=== PATIENT | male | born 1995 | race Caucasian/White ===

== ENCOUNTER 2017-05-22 13:52 | Day surgery (SDC) | payer OTHER ==
[~2017-05-22 13:52] MED LIST: Buffered Lidocaine 0.9% SYRIN* 5 ML/SYR SYRINGE INTRADERM ONE; Sodium Citrate/Citric Acid* 15 ML UDC PO ONE
[2017-05-22] MEDS ORDERED: ceFAZolin 2 GM PREMIX (*) 2 GM/50 ML BAG IVPB ONE (14:16)
[2017-05-22] MEDS ORDERED: Sodium Citrate/Citric Acid* 15 ML UDC ONE (14:16)
[2017-05-22] MEDS ORDERED: Propofol* 10 MG/ML 20 ML BTL IV PUSH ONE ×2 (17:32→17:35)
[2017-05-22] MEDS ORDERED: fentaNYL* 50 MCG/ML 2 ML VIAL (100 MCG VIAL) ONE (17:32)
[2017-05-22] MEDS ORDERED: Midazolam* 1 MG/ML 2 ML VIAL (2 MG) ONE (17:33)
[2017-05-22] MEDS ORDERED: ROPIVACAINE 5 MG/ML 30 ML BTL (0.5%) ONE (17:34)
[2017-05-22] MEDS ORDERED: fentaNYL* 50 MCG/ML 2 ML VIAL (100 MCG VIAL) IV PRN (17:48)
[2017-05-22] MEDS ORDERED: Ketorolac INJ* 30 MG/ML 1 ML VIAL IV PRN (17:48)
[2017-05-22] MEDS ORDERED: Ondansetron INJ* 2 MG/ML VIAL IV PRN (17:48)
[2017-05-22] MEDS ORDERED: Bupivacaine 0.25% SDV* 30 ML ONE (19:35)
[2017-05-22 21:04] VITALS: BP 133/77
--- NOTE | 2017-05-23 05:19 | OP ---
DATE OF OPERATION: 05/22/17 - [facility] DATE OF : 89 SURGEON: Osvaldo Ramirez MD SKIVER WELT END: JEN Magana. An biology laboratory assistant was needed for the entirety of the procedure to aid in positioning of the arm and retraction. ANESTHESIOLOGIST: Lino Holly DO ANESTHESIA: Axillary block plus general. 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 POST-OP DIAGNOSIS: Left wrist proximal pole scaphoid nonunion. OPERATIVE PROCEDURE: Repair of left scaphoid nonunion with autogenous distal radius bone graft and internal fixation. INDICATIONS: Shamar had the fracture about 6 weeks ago. 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 We talked about risks and benefits and he wanted to proceed. IMPLANTS: Mini Acutrak screw. ESTIMATED BLOOD LOSS: 2 mL. COMPLICATIONS: None. FINDINGS: As expected, there was quite a bit of fibrous tissue in the nonunion site. DESCRIPTION OF PROCEDURE: Shamar was seen in the preoperative holding area. The correct side, site, and the procedure were identified. We came back to operating room, where an axillary block was performed and then anesthesia was induced. The arm was prepped and draped in the usual fashion. A time-out was performed. I exsanguinated the arm with an Esmarch and the tourniquet was inflated to 250 mmHg. The dorsal incision was made right over the third dorsal compartment. Dissection was carried down, the dorsal compartment was released and the EPL tendon was transposed. The capsule was opened dorsally to expose the proximal pole of the scaphoid. The nonunion site was identified. Ghislaine area where the nonunion was visualized and I passed a Haywood blade, which dropped easily into the nonunion. I wedged this open and then curetted out the nonunion with a micro curette. Once I got out as much of the fibrous tissue as I possibly could , I went ahead and harvested my distal radius bone graft by coming just in the bed of the EPL tendon proximally and making a cortical window with the osteotomes. The curettes were used to harvest the cancellous bone from the distal radial metaphysis. This was then placed in the nonunion site in the scaphoid and packed until it was tight. At this point, I flexed down the wrist and I passed the guidewire from the mini Acutrak screw. Once I had in the correct position, I measured and then drilled a 22-mm screw. This was placed in a standard fashion. There was excellent compression generated across the nonunion. Everything was very stable. I had placed a counter-rotation K-wire prior to drilling. It was removed as the screw was going in to allow for compression. Once everything was nicely compressed, I went ahead and irrigated out the wound. The capsule was closed with 4-0 Ethibond suture. The extensor retinaculum was closed with 4-0 Ethibond suture leaving the EPL tendon transposed. Skin was closed with 3-0 Monocryl and Steri-Strips. The operative site was infiltrated with 0.25% Marcaine. The wound was dressed with Xeroform, 4x4s, sterile Webril, and a thumb spica splint was applied. He was woken up and taken to recovery room in stable condition. [id number]/[facility] #: [id number] CARIN
--- NOTE | 2017-05-24 07:30 | RAD ---
INDICATION: Traumatic fracture left wrist COMPARISON: July 07, 2016 FINDINGS: 24 seconds of fluoroscopy were provided for the orthopedics department. Fluoroscopic spot imaging of the left wrist were obtained for operative control and show with peak fixation of the navicular fracture with placement of a screw. Fracture fragments are closely opposed. CPT II Codes: 6045F (fluoro time doc)
== END 2017-05-22 21:10 | disposition home or self-care (01) ==
LOC: OREAST 13:52
PROVIDERS: ATTEND Orthopaedic Surgery Hand Surgery
DX: S62.032K Displaced fracture of proximal third of navicular [scaphoid] bone of left wrist, subsequent encounter for fracture with nonunion (principal); W03.XXXD Other fall on same level due to collision with another person, subsequent encounter; Y92.321 Football field as the place of occurrence of the external cause
CPT/HCPCS: 76000; A9270-GY; C1713; C1776; J0690; J2250; J2704; J2795; J3010